=== PATIENT | male | born 1985 | race Caucasian/White ===

== ENCOUNTER 2021-05-24 13:32 | Emergency (ER) | payer BC ==
[2021-05-24] MEDS: GI Cocktail Oral Solution 30 ML PO ONE (14:40)
[2021-05-24 14:44] LABS: ANION GAP 12.1 meq/L (7-15); CHLORIDE,CL 103 mmol/L (98-107); SODIUM,NA 140 mmol/L (136-145)
[2021-05-24] MEDS ORDERED: Sodium Chloride 0.9% 10 ML Syringe FLUSH PRN (15:27)
[2021-05-24] MEDS: Pantoprazole 40 MG Tab.CR PO ONE (15:40)
[2021-05-24] MEDS: Pantoprazole 40 MG Vial IVPUSH ONE (15:47)
[2021-05-24] MEDS: Sodium Chloride 0.9% 500 ML IV SCH (15:47)
--- NOTE | 2021-05-24 15:51 | EDM.PDOC ---
ED HPI GENERAL MEDICAL PROBLEM - General Chief Complaint: Chest Pain Stated Complaint: chest pain Time Seen by Provider: 05/24/21 13:57 Source of Information: Reports: Patient History Limitations: Reports: No Limitations - History of Present Illness INITIAL COMMENTS - FREE TEXT/NARRATIVE: Patient comes to the ER with complaint of central chest pain that has been present approx 10 days. Sometimes radiates to left chest. Sensation of anxiety with the pain. Has felt intermittent anxiety since he had Covid last year. Sometimes pain starts mid sternum and gradually migrates down to epigastric area. Increased burping noted. Burps can improve discomfort. Sometimes nausea and emesis/nonbloody. No fevers/chills/weight loss. Wakes pain-free. Develops pain around 10-11 am and pain persists for hours. Gradually will go away usually by bed time. Started on Famotidine by primary provider. Does not feel that is helping. Nothing specific triggers pain. Has not had an issue like this in past. No history of GI evaluation/endoscopy. Did recently finish a course of Levaquin last week when this pain complaint started. Had been taking it for pneumonia diagnosis. Has poor diet. Smokes 1ppd. ETOH abut 4 days a week, usually mixed drink (Vodka/soda). No abdominal pain. No change in bowel movements. No urinary complaints. No neuro changes. No HEENT changes. Denies cough/reflux/SOB. No other reported changes. Unremarkable past medical history otherwise. Chest Tightness Pain Score (Numeric/FACES): 5 - Related Data Allergies Allergy/AdvReac Type Severity Reaction Status Date / Time amoxicillin [From Augmentin] Allergy Other Verified 05/24/21 13:40 clavulanic acid Allergy Other Verified 05/24/21 13:40 [From Augmentin] secretin [From SecreFlo] Allergy Other Verified 05/24/21 13:40 Home Meds: Home Meds Famotidine 40 mg PO DAILY 05/24/21 [History] Past Medical History Gastrointestinal History: Reports: GERD (suspected) Social & Family History - Tobacco Use Tobacco Use Status *Q: Current Every Day Tobacco User Tobacco Use Within Last Twelve Months: Cigarettes Packs/Tins Daily: 1 - Alcohol Use Alcohol Use Frequency: Weekly (4 times a week) - Recreational Drug Use Recreational Drug Use: No Drug Use in Last 12 Months: No ED ROS GENERAL - Review of Systems Review Of Systems: Comprehensive ROS is negative, except as noted in HPI. ED EXAM, GENERAL - Physical Exam Exam: See Below Exam Limited By: No Limitations General Appearance: Alert, Anxious Eye Exam: Bilateral Eye: EOMI, PERRL Ears: Normal External Exam, Normal Canal, Hearing Grossly Normal Nose: No: Normal Inspection, Nasal Swelling, Nasal Drainage Throat/Mouth: Normal Lips, Normal Voice, No Airway Compromise Head: Atraumatic, Normocephalic Neck: Normal Inspection, Supple, Non-Tender, Full Range of Motion Respiratory/Chest: No Respiratory Distress, Lungs Clear, Normal Breath Sounds, No Accessory Muscle Use, Chest Non-Tender Cardiovascular: Normal Peripheral Pulses, Regular Rate, Rhythm, No Edema, No Gallop, No JVD, No Murmur GI/Abdominal: Normal Bowel Sounds, Soft, Non-Tender, No Organomegaly, No Distention. No: Distended, Guarding, Rigid, Rebound, Tender (Male) Exam: Deferred Rectal (Males) Exam: Deferred Back Exam: Normal Inspection Extremities: Normal Inspection, Normal Range of Motion, Non-Tender, No Pedal Edema, Normal Capillary Refill Neurological: Alert, Oriented, CN II-XII Intact, Normal Cognition, Normal Gait, No Motor/Sensory Deficits Psychiatric: Normal Affect, Normal Mood Skin Exam: Warm, Dry, Intact, Normal Color #1 Interpretation EKG Date: 05/24/21 Time: 13:56 Rhythm: NSR Rate (Beats/Min): 68 Maynard: Normal P-Wave: Present QRS: Normal ST-T: Normal QT: Normal Comparison: NA - No Prior EKG Course - Vital Signs Last Recorded V/S: Last Vital Signs Temp 36.6 C 05/24/21 13:34 Pulse 95 05/24/21 13:34 Resp 16 05/24/21 13:34 BP 157/111 H 05/24/21 13:34 Pulse Ox 100 05/24/21 13:34 - Orders/Labs/Meds Orders: Active Orders 24 hr Category Date Time Status Abdomen Ltd [US] Stat Exams 05/24/21 16:03 Taken Chest 2V [CR] Stat Exams 05/24/21 13:51 Taken COMPREHENSIVE METABOLIC PN,CMP [CHEM] Stat Lab 05/24/21 14:05 Results MAGNESIUM [CHEM] Stat Lab 05/24/21 14:05 Results TROPONIN I HIGH SENSITIVITY [CHEM] Stat Lab 05/24/21 14:05 Results Sodium Chloride 0.9% [Saline Flush] Med 05/24/21 15:27 Active 10 ml FLUSH ASDIRECTED PRN Saline Lock Insert [OM.PC] Routine Oth 05/24/21 15:27 Ordered Medication Orders Sodium Chloride (Sodium Chloride 0.9% 10 Ml Syringe) 10 ml FLUSH ASDIRECTED PRN PRN Reason: Keep Vein Open Labs: Laboratory Tests 05/24/21 05/24/21 05/24/21 Range/Units 14:05 14:05 14:05 WBC 6.9 (4.0-10.2) K/uL RBC 4.44 (4.33-5.41) M/uL Hgb 15.2 (13.1-16.8) g/dL Hct 43.3 (39.0-49.0) % MCV 97.5 (84.0-98.0) fL MCH 34.2 H (28.2-33.3) pg MCHC 35.1 (31.7-36.0) g/dL RDW 11.2 (11.2-14.1) % Plt Count 183 (150-350) K/uL Neut % (Auto) 70.2 (45.0-80.0) % Lymph % (Auto) 18.4 (10.0-50.0) % [place] % (Auto) 7.7 (2.0-14.0) % Eos % (Auto) 3.0 (0.0-5.0) % Baso % (Auto) 0.7 (0.0-2.0) % Neut # (Auto) 4.84 (1.40-7.00) K/uL Lymph # (Auto) 1.27 (0.50-3.50) K/uL [place] # (Auto) 0.53 (0.00-1.00) K/uL Eos # (Auto) 0.21 (0.00-0.50) K/uL Baso # (Auto) 0.05 (0.00-0.20) K/uL D-Dimer, Quantitative (0-400) ng/mL Sodium 140 (136-145) mmol/L Potassium 3.9 (3.5-5.1) mmol/L Chloride 103 (98-107) mmol/L Carbon Dioxide 24.9 (21.0-32.0) mmol/L Anion Gap 12.1 (7-15) meq/L BUN 3 L (7-18) mg/dL Creatinine 0.86 (0.51-1.17) mg/dL Est Cr Clr Drug Dosing 135.49 mL/min Estimated GFR (MDRD) > 60 mL/min Glucose 83 (70-99) mg/dL Lactic Acid 2.4 H (0.4-2.0) mmol/L Calcium 9.6 (8.5-10.1) mg/dL Magnesium 1.5 L (1.8-2.4) mg/dL Total Bilirubin 1.1 H (0.2-1.0) mg/dL ALT 124 H (12-78) U/L Alkaline Phosphatase 68 (46-116) IU/L Troponin I High Sens 4 (<=76) ng/L Total Protein 7.5 (6.4-8.2) g/dL Albumin 4.2 (3.4-5.0) g/dL Specimen Type Urine Color Urine Appearance Urine pH (5.0-9.0) Ur Specific [place] (1.005-1.030) Urine Protein (NEGATIVE) mg/dL Urine Glucose (UA) (NEGATIVE) mg/dL Urine Ketones (NEGATIVE) mg/dL Urine Occult Blood (NEGATIVE) Urine Nitrite (NEGATIVE) Urine Bilirubin (NEGATIVE) Urine Urobilinogen (0.2-1.0) E.U./dL Ur Leukocyte Esterase (NEGATIVE) Ethyl Alcohol (0.000-0.080) g/dL 05/24/21 05/24/21 05/24/21 Range/Units 14:05 14:05 15:15 WBC (4.0-10.2) K/uL RBC (4.33-5.41) M/uL Hgb (13.1-16.8) g/dL Hct (39.0-49.0) % MCV (84.0-98.0) fL MCH (28.2-33.3) pg MCHC (31.7-36.0) g/dL RDW (11.2-14.1) % Plt Count (150-350) K/uL Neut % (Auto) (45.0-80.0) % Lymph % (Auto) (10.0-50.0) % [place] % (Auto) (2.0-14.0) % Eos % (Auto) (0.0-5.0) % Baso % (Auto) (0.0-2.0) % Neut # (Auto) (1.40-7.00) K/uL Lymph # (Auto) (0.50-3.50) K/uL [place] # (Auto) (0.00-1.00) K/uL Eos # (Auto) (0.00-0.50) K/uL Baso # (Auto) (0.00-0.20) K/uL D-Dimer, Quantitative < 100 (0-400) ng/mL Sodium (136-145) mmol/L Potassium (3.5-5.1) mmol/L Chloride (98-107) mmol/L Carbon Dioxide (21.0-32.0) mmol/L Anion Gap (7-15) meq/L BUN (7-18) mg/dL Creatinine (0.51-1.17) mg/dL Est Cr Clr Drug Dosing mL/min Estimated GFR (MDRD) mL/min Glucose (70-99) mg/dL Lactic Acid (0.4-2.0) mmol/L Calcium (8.5-10.1) mg/dL Magnesium (1.8-2.4) mg/dL Total Bilirubin (0.2-1.0) mg/dL ALT (12-78) U/L Alkaline Phosphatase (46-116) IU/L Troponin I High Sens (<=76) ng/L Total Protein (6.4-8.2) g/dL Albumin (3.4-5.0) g/dL Specimen Type Urincc Urine Color Dark yellow Urine Appearance Clear Urine pH 7.5 (5.0-9.0) Ur Specific [place] 1.015 (1.005-1.030) Urine Protein Negative (NEGATIVE) mg/dL Urine Glucose (UA) Negative (NEGATIVE) mg/dL Urine Ketones 15 H (NEGATIVE) mg/dL Urine Occult Blood Negative (NEGATIVE) Urine Nitrite Negative (NEGATIVE) Urine Bilirubin Negative (NEGATIVE) Urine Urobilinogen 0.2 (0.2-1.0) E.U./dL Ur Leukocyte Esterase Negative (NEGATIVE) Ethyl Alcohol 0.021 (0.000-0.080) g/dL 05/24/21 Range/Units 16:55 WBC (4.0-10.2) K/uL RBC (4.33-5.41) M/uL Hgb (13.1-16.8) g/dL Hct (39.0-49.0) % MCV (84.0-98.0) fL MCH (28.2-33.3) pg MCHC (31.7-36.0) g/dL RDW (11.2-14.1) % Plt Count (150-350) K/uL Neut % (Auto) (45.0-80.0) % Lymph % (Auto) (10.0-50.0) % [place] % (Auto) (2.0-14.0) % Eos % (Auto) (0.0-5.0) % Baso % (Auto) (0.0-2.0) % Neut # (Auto) (1.40-7.00) K/uL Lymph # (Auto) (0.50-3.50) K/uL [place] # (Auto) (0.00-1.00) K/uL Eos # (Auto) (0.00-0.50) K/uL Baso # (Auto) (0.00-0.20) K/uL D-Dimer, Quantitative (0-400) ng/mL Sodium (136-145) mmol/L Potassium (3.5-5.1) mmol/L Chloride (98-107) mmol/L Carbon Dioxide (21.0-32.0) mmol/L Anion Gap (7-15) meq/L BUN (7-18) mg/dL Creatinine (0.51-1.17) mg/dL Est Cr Clr Drug Dosing mL/min Estimated GFR (MDRD) mL/min Glucose (70-99) mg/dL Lactic Acid 1.6 (0.4-2.0) mmol/L Calcium (8.5-10.1) mg/dL Magnesium (1.8-2.4) mg/dL Total Bilirubin (0.2-1.0) mg/dL ALT (12-78) U/L Alkaline Phosphatase (46-116) IU/L Troponin I High Sens (<=76) ng/L Total Protein (6.4-8.2) g/dL Albumin (3.4-5.0) g/dL Specimen Type Urine Color Urine Appearance Urine pH (5.0-9.0) Ur Specific [place] (1.005-1.030) Urine Protein (NEGATIVE) mg/dL Urine Glucose (UA) (NEGATIVE) mg/dL Urine Ketones (NEGATIVE) mg/dL Urine Occult Blood (NEGATIVE) Urine Nitrite (NEGATIVE) Urine Bilirubin (NEGATIVE) Urine Urobilinogen (0.2-1.0) E.U./dL Ur Leukocyte Esterase (NEGATIVE) Ethyl Alcohol (0.000-0.080) g/dL Meds: Medications Generic Name Dose Route Start Last Admin Trade Name Freq PRN Reason Stop Dose Admin Sodium Chloride 10 ml 05/24/21 15:27 Sodium Chloride 0.9% 10 Ml Syringe FLUSH ASDIRECTED PRN Keep Vein Open Discontinued Medications Generic Name Dose Route Start Last Admin Trade Name Freq PRN Reason Stop Dose Admin Al Hydroxide/Mg Hydroxide 30 ml 05/24/21 14:30 05/24/21 14:40 Gi Cocktail Oral Solution 30 Ml PO 05/24/21 14:31 30 ml ONETIME ONE Administration Magnesium Sulfate/Dextrose 1 100 mls @ 100 mls/hr 05/24/21 15:27 05/24/21 15:48 gm/ Premix IV 05/24/21 16:26 100 mls/hr ONETIME ONE Administration Sodium Chloride 500 mls @ 500 mls/hr 05/24/21 15:45 05/24/21 15:47 Normal Saline IV 500 mls/hr .BOLUS JENNIFER Administration Magnesium Sulfate/Dextrose 1 100 mls @ 100 mls/hr 05/24/21 16:45 05/24/21 17:06 gm/ Premix IV 05/24/21 17:44 100 mls/hr ONETIME ONE Administration Pantoprazole Sodium 40 mg 05/24/21 15:26 05/24/21 15:40 Pantoprazole 40 Mg Tab.Cr PO 05/24/21 15:27 Not Given ONETIME ONE Pantoprazole Sodium 40 mg 05/24/21 15:29 05/24/21 15:47 Pantoprazole 40 Mg Vial IVPUSH 05/24/21 15:30 40 mg ONETIME ONE Administration - Radiology Interpretation Free Text/Narrative:: Chest xray showed no acute focal changes - Re-Assessments/Exams Free Text/Narrative Re-Assessment/Exam: 05/24/21 15:56 GI cocktail provided some relief from the pain. Normal WBC. Lactic 2.5 Total Bili 1.1 ALT 124 Unremarkable UA other than 15 ketones. Normal Troponin and DDimer. Mag low at 1.5 Mag replacement initiated given the low level. 2g ordered due to IV fluids also being ordered which will further dilute Mag. Protonix IV ordered. Suspect GI source given the burping/pattern of pain/partial response to GI cocktail. May have been triggered by recent antibiotics. RUQ US ordered to rule out contribution from gallbladder/liver area. If negative anticipate that patient will be able to be discharged with close follow up by local PCP. Advise referral to GI for evaluation/endoscopy and testing for H.Pylori. Patient does not think he can provide stool sample for that today while in ER. 05/24/21 18:36 Patient more comfortable. Recheck lactic acid 1.6 BP improved. US study showed no acute inflammation/stones in RUQ that could be contributing to pain issues. Time spend reviewing potential life style changes that could help with GERD/GI issues such as an anti-inflammatory diet/avoiding alcohol and smoking. He plans to see his primary tomorrow and will ask for GI referral. He is to speak to his primary about setting up H.Pylori testing. Precautions reviewed. To follow up in ER if he has sudden worsening issues. Patient agreeable with plan. Departure - Departure Time of Disposition: 18:18 Disposition: Home, Self-Care 01 Condition: Good Clinical Impression: Atypical chest pain, Elevated blood pressure reading - Discharge Information *PRESCRIPTION DRUG MONITORING PROGRAM REVIEWED*: Not Applicable *COPY OF PRESCRIPTION DRUG MONITORING REPORT IN PATIENT IVY: Not Applicable Instructions: Nonspecific Chest Pain, Adult Referrals: Arabella Peoples NP [Primary Care Provider] - Forms: ED Department Discharge Additional Instructions: Please follow up with your primary provider tomorrow in regards to referral to GI given the persistent discomfort you have been experiencing. You may need a scope to more fully assess your esophagus/stomach and see if there are erosions/ulcers. You should also have testing for H.Pylori performed as we discussed. In meantime keep taking the stomach medication you were prescribed. Avoid alcohol. Avoid processed foods/sugars/fast food/dairy/gluten/wheat and grains. Start Magnesium supplement as we discussed (400mg daily) in addition to Vitamin D and digestive enzymes. Take a digestive enzyme with meals. Drink water and avoid soda/processed drinks. Follow up as needed if you have sudden worsening problems/new concerns. Sepsis Event Note (ED) - Evaluation Sepsis Screening Result: No Definite Risk - Focused Exam Vital Signs: Vital Signs Temp Pulse Resp BP Pulse Ox 05/24/21 13:34 36.6 C 95 16 157/111 H 100 - My Orders Last 24 Hours: My Active Orders 05/24/21 13:51 Chest 2V [CR] Stat 05/24/21 14:05 COMPREHENSIVE METABOLIC PN,CMP [CHEM] Stat MAGNESIUM [CHEM] Stat TROPONIN I HIGH SENSITIVITY [CHEM] Stat 05/24/21 15:27 Sodium Chloride 0.9% [Saline Flush] 10 ml FLUSH ASDIRECTED PRN Saline Lock Insert [OM.PC] Routine 05/24/21 16:03 Abdomen Ltd [US] Stat - Assessment/Plan Last 24 Hours: My Active Orders 05/24/21 13:51 Chest 2V [CR] Stat 05/24/21 14:05 COMPREHENSIVE METABOLIC PN,CMP [CHEM] Stat MAGNESIUM [CHEM] Stat TROPONIN I HIGH SENSITIVITY [CHEM] Stat 05/24/21 15:27 Sodium Chloride 0.9% [Saline Flush] 10 ml FLUSH ASDIRECTED PRN Saline Lock Insert [OM.PC] Routine 05/24/21 16:03 Abdomen Ltd [US] Stat
== END 2021-05-24 16:30 | disposition home or self-care (01) ==
LOC: LL.ED 13:32
DX: R07.89 Other chest pain (principal); I10 Essential (primary) hypertension; Z88.0 Allergy status to penicillin; Z88.8 Allergy status to other drugs, medicaments and biological substances; Z72.0 Tobacco use
CPT/HCPCS: 36415; 71046; 76705; 80053; 80307; 81003; 83605; 83735; 84484; 85025; 85379; 93005; 93010; 96365; 96375; 99284; 99285-25; A9270-GY; C9113; J3475; J7040

== ENCOUNTER 2025-05-13 09:08 | Emergency (ER) | payer BC ==
[2025-05-13] MEDS ORDERED: Sodium Chloride 0.9% 10 ML Syringe FLUSH PRN (09:22)
[2025-05-13 09:37] LABS: BASOPHILS ABSOLUTE AUTO 0.02 K/uL (0.00-0.20); BASOPHILS PERCENT AUTO 0.3 % (0.0-2.0); EOSINOPHILS ABSOLUTE AUTO 0.16 K/uL (0.00-0.50); EOSINOPHILS PERCENT AUTO 2.7 % (0.0-5.0); IMMATURE GRAN ABSOLUTE AUTO 0.01 10^3/uL (0.00-0.04); IMMATURE GRAN PERCENT AUTO 0.2 % (0.0-0.4); LYMPHOCYTES ABSOLUTE AUTO 1.49 K/uL (0.50-3.50); LYMPHOCYTES PERCENT AUTO 25.1 % (10.0-50.0); MONOCYTES ABSOLUTE AUTO 0.33 K/uL (0.00-1.00); MONOCYTES PERCENT AUTO 5.6 % (2.0-14.0); NEUTROPHILS ABSOLUTE AUTO 3.93 K/uL (1.40-7.00); NEUTROPHILS PERCENT AUTO 66.1 % (45.0-80.0); PLATELET COUNT,PLT 148 K/uL (150-350); RED BLOOD CELL COUNT 4.80 M/uL (4.33-5.41); RED CELL DISTRIBUTION WIDTH 11.7 % (11.2-14.1); WHITE BLOOD CELL COUNT,WBC 5.9 K/uL (4.0-10.2)
[2025-05-13 10:02] LABS: ALANINE AMINOTRANSFERASE,ALT 17.0 U/L (12-78); ASPARTATE AMNIOTRANSFERASE,AST 11.0 U/L (15-37); BILIRUBIN TOTAL 1.0 mg/dL (0.2-1.0); BLOOD UREA NITROGEN,BUN 5.0 mg/dL (7-18); CARBON DIOXIDE,CO2 28.2 mmol/L (21.0-32.0); CHLORIDE,CL 105.0 mmol/L (98-107); CREATININE 1.15 mg/dL (0.51-1.17); EST CRCL DRUG DOSING (CG) 100.27 mL/min; ESTIMATED GFR 83.0 mL/min (>=60); GLUCOSE RANDOM 120.0 mg/dL (70-99); POTASSIUM,K 3.7 mmol/L (3.5-5.1); PROTEIN TOTAL,TP 7.1 g/dL (6.4-8.2); SODIUM,NA 142.0 mmol/L (136-145)
== END 2025-05-13 10:45 | disposition home or self-care (01) ==
LOC: LL.ED 09:08
DX: R55 Syncope and collapse (principal); E86.0 Dehydration; Z88.0 Allergy status to penicillin; Z88.8 Allergy status to other drugs, medicaments and biological substances; Z79.899 Other long term (current) drug therapy
CPT/HCPCS: 36415; 80053; 85025; 96360; 99284; 99284-25; J7030